=== PATIENT | female | born 1965 | race African-American/Black ===

== ENCOUNTER 2016-10-01 08:14 | Emergency (ER) | payer BC ==
[~2016-10-01] VITALS: Ht 167.6 cm; Wt 128.5 kg
[~2016-10-01 08:14] MED LIST: COUMADIN5 MG PO; COUMADIN7.5 MG PO; CRESTOR10 MG PO; CRESTOR40 MG PO; HYDROCHLOROTHIA25 MG PO; KLOR-CON M2020 MEQ PO; LOVENOX120 MG/0.8 SC; LOVENOX150 MG/1 M SC; WARFARIN SODIUM4 MG PO; WARFARIN SODIUM5 MG PO; XARELTO20 MG PO
[2016-10-01 09:04] LABS: EOSINOPHIL (%) 2.8 % (0-5); EOSINOPHIL COUNT 0.2 K/uL (0-0.3); HEMATOCRIT 40.5 % (36.0-46.0); IMMATURE GRANULOCYTE (%) 0.2 % (0.0-0.7); IMMATURE GRANULOCYTE COUNT 0.1 K/uL; LYMPHOCYTE COUNT 2.4 K/uL (1.0-2.8); MCH 29.6 PG (29.0-34.0); MCHC 34.1 G/DL (30.0-36.0); MCV 86.9 FL (83-99); MEAN PLAT.VOLUME 8.5 uM^3 (9.5-12.4); MONOCYTE (%) 8.6 % (3-12); MONOCYTE COUNT 0.5 K/uL (0-0.8); NEUTROPHIL (%) 48.9 % (45-76); PLATELET COUNT 202 K/uL (156-360); RBC DIS.WIDTH-CV 15.4 % (11.8-14.6); RBC DIS.WIDTH-SD 48.3 % (39-53); RED BLOOD COUNT 4.66 M/uL (3.80-5.20); WHITE BLOOD COUNT 6.2 K/uL (4.1-10.2)
[2016-10-01 09:15] LABS: INTER. NORMALIZED RATIO 2.6; PROTHROMBIN TIME 26.9 (9.2-11.2); PTT 41.1 (25-32)
[2016-10-01 09:25] LABS: TROP-I INTERPRETATION NEGATIVE; TROPONIN-I < 0.01 ng/mL (0.0-0.30)
[2016-10-01 09:28] LABS: CHLORIDE 108 mEq/L (99-109); POTASSIUM 4.4 mEq/L (3.7-5.4); SODIUM 141 mEq/L (136-147)
[2016-10-01 09:30] LABS: GLUCOSE 91 mg/dL (70-99)
[2016-10-01 09:32] LABS: ANION GAP 10 MEQ/L (2-14)
[2016-10-01 09:34] LABS: GFR ESTIMATE (CALCULATED) > 59 mL/min/
[2016-10-01 09:35] LABS: UREA NITROGEN (BUN) 12 mg/dL (9-23)
[2016-10-01] MEDS ORDERED: COUMADIN10 MG PO (09:47)
[2016-10-01] MEDS ORDERED: TYLENOL WITH C1 EACH PO (10:06)
[2016-10-01 10:15] VITALS: BP 132/82
== END 2016-10-01 10:20 | disposition home or self-care (01) ==
LOC: EME 08:14
PROVIDERS: Emergency Medicine
DX: R07.89 Other chest pain (principal); J45.909 Unspecified asthma, uncomplicated; E78.5 Hyperlipidemia, unspecified; I10 Essential (primary) hypertension; Z86.711 Personal history of pulmonary embolism; Z86.718 Personal history of other venous thrombosis and embolism; Z79.01 Long term (current) use of anticoagulants; Z87.891 Personal history of nicotine dependence
CPT/HCPCS: 71010; 80048; 84484; 85025; 85610; 85730; 93005; 99281; 99284

== ENCOUNTER → 2017-06-23 | Outpatient (CLI) | payer BC ==
[~2017-06-23] VITALS: Ht 170.2 cm; Wt 125.2 kg
[~2017-06-23] MED LIST changes: +COUMADIN10 MG PO; +ERGOCALCIF50000 UNIT PO; +TYLENOL WITH C1 EACH PO; +VITAMIN B-12 51 EACH SL
[2017-06-23 11:33] LABS: INTER. NORMALIZED RATIO 2.9; PROTHROMBIN TIME 33.3 SEC (10.2-12.9)
[2017-06-23 11:36] LABS: PTT 36.9 SEC (25-37)
== END | disposition home or self-care (01) ==
LOC: AMB 10:15
PROVIDERS: Surgery
PROC: 0DJ08ZZ Inspection of Upper Intestinal Tract, Via Natural or Artificial Opening Endoscopic (ICD-10-PCS; principal; 2017-06-23)
DX: R13.10 Dysphagia, unspecified (principal); Z98.84 Bariatric surgery status; K91.2 Postsurgical malabsorption, not elsewhere classified; I10 Essential (primary) hypertension; E78.5 Hyperlipidemia, unspecified; Z86.711 Personal history of pulmonary embolism; Z86.718 Personal history of other venous thrombosis and embolism; Z79.01 Long term (current) use of anticoagulants; J45.909 Unspecified asthma, uncomplicated; Z87.891 Personal history of nicotine dependence; Z82.49 Family history of ischemic heart disease and other diseases of the circulatory system; Z82.3 Family history of stroke; Z80.9 Family history of malignant neoplasm, unspecified; Z88.8 Allergy status to other drugs, medicaments and biological substances
CPT/HCPCS: 85610; 85730; 93005